=== PATIENT | female | born 1970 | race Caucasian/White ===

== ENCOUNTER 2018-08-12 17:38 | Inpatient (IN) | payer OTHER ==
[~2018-08-12] VITALS: Ht 167.6 cm; Wt 76.7 kg
[~2018-08-12 17:38] MED LIST: ALBU-118 IH; ARIP2TAB2 PO; ATA10 PO; FERR325E14 PO; PROP20TA29 PO
[2018-08-12 17:44] VITALS: BP 112/51
--- NOTE | 2018-08-12 17:49 | NUR ---
PT AMBULATES TO BED 4
--- NOTE | 2018-08-12 17:54 | NUR ---
PT C/O VAGINAL BLEEDING X 1 WEEK, PALE AND DIZZNESS AND NOT FEELING WELL. PATIENT FEELS NAUSEA NO VOMITTING. 06/11 ABDOMINAL CRAMPING HX--ANEMIA, FIBROID, COPD, ASTHMA MEDS--- PAROXETINE, ABILIFY
--- NOTE | 2018-08-12 18:09 | NUR ---
Patient being evaluated by physician at bedside.
[2018-08-12] MEDS ORDERED: ONDANSETRON 4 MG/2 ML VIAL IVP ONE (18:10)
[2018-08-12] MEDS ORDERED: NACL 0.9% 1,000 ML IV ONE ×2 (18:10→19:20)
[2018-08-12 18:53] LABS: BASOPHILS # (AUTO) 0.1 K/uL (0.00-0.22); BASOPHILS % (AUTO) 2.1 % (0.0-2.0); EOSINOPHILS # (AUTO) 0.1 K/uL (0-0.4); EOSINOPHILS % (AUTO) 1.4 % (0.0-4.0); LYMPHOCYTES % (AUTO) 14.9 % (20.5-51.1); MEAN CORPUSCULAR HEMOGLOBIN 17 pg (27-31); MEAN CORPUSCULAR HGB CONC 28 g/dL (33-37); MONOCYTES # (AUTO) 0.5 K/uL (0.8-1.0); NEUTROPHILS % (AUTO) 73.6 % (42.2-75.2); PLATELET COUNT (AUTO) 329 K/uL (140-450); RED BLOOD CELL COUNT(AUTO) 2.75 MIL/uL (4.20-5.40); RED CELL DISTRIBUTION WIDTH 19.7 % (11.6-13.7); WHITE BLOOD COUNT (AUTO) 6.8 K/uL (4.8-10.8)
[2018-08-12 19:03] LABS: ANION GAP 10.6 (8-16); CARBON DIOXIDE 27.3 mmol/L (21-32); CREATININE 0.9 mg/dL (0.6-1.3); POTASSIUM 3.9 mmol/L (3.5-5.1)
[2018-08-12 19:04] LABS: HEMOGLOBIN 4.7 g/dL (12.0-16.0)
[2018-08-12 19:09] LABS: TOTAL BILIRUBIN 0.3 mg/dL (0.0-1.0)
--- NOTE | 2018-08-12 19:10 | NUR ---
DR. ARGUETA EVALUATING PATIENT AFTER. Addendum: 08/12/[address] ARGUETA EVALUATING PATIENT.
[2018-08-12 19:18] LABS: PROTHROMBIN TIME 9.9 secs (10.8-13.4)
--- NOTE | 2018-08-12 19:21 | NUR ---
REPORT FROM MARY CARMEN WATSON
--- NOTE | 2018-08-12 19:30 | NUR ---
EKG PERFORMED AT BEDSIDE WITH RN PRESENT. PT COVERED IN GOWN AND BLANKET DURING PROCEDURE.
--- NOTE | 2018-08-12 19:44 | NUR ---
ULTRASOUND AT BEDSIDE.
[2018-08-12 19:47] LABS: CREATINE KINASE MB 0.5 ng/mL (0-3.6)
--- NOTE | 2018-08-12 20:36 | NUR ---
1UNIT PRBC STARTED.
--- NOTE | 2018-08-12 20:51 | NUR ---
15 MINS POST TRANSFUSION START. NO REACTION AT THIS TIME. VSS. TRANFUSION CONTINUING. WILL CONTINUE TO MONITOR.
--- NOTE | 2018-08-12 21:44 | NUR ---
Patient will be admitted to care of DR THOMAS. Admited to TELE. Will go to room 107-A. Belongings list completed. Report to SHIRLEY YOUSSEF.
--- NOTE | 2018-08-12 21:45 | NUR ---
PT ARRIVED TO FLOOR. RECEIVED BEDSIDE REPORT FROM ER NURSE ARIS. PT IS A&O X4. NO COMPLAINS OF SOB. RESPIRATIONS ARE EQUAL AND UNLABORED. PT HAS TWO IV LEFT HAND 22 G INFUSING NS BOLUS. R HAND 20 G RECEIVING BLOOD. VITAL SIGNS STABLE. DISCUSSED PLAN OF CARE. PT SKIN IS INTACT. PT STATES, " HAD SCHEDULED HYSTERECTOMY IN JULY BUT GOT CANCELED." BED ALARM ON AND ON LOWEST POSITION. CALL LIGHT WITHIN REACH.
[2018-08-12 21:48] VITALS: BP 109/39
--- NOTE | 2018-08-12 22:15 | NUR ---
PAGED DR THOMAS REGARDING PTS MEDS.
[2018-08-12] MEDS ORDERED: MORPHINE SULFATE 2 MG/ML SYR IVP PRN (22:30)
--- NOTE | 2018-08-12 23:45 | NUR ---
STARTED NEW BAG OF BLOOD. NO DISTRESS NOTED. PT DENIES ANY SOB OR PAIN. PT IN STABLE CONDITION. VITALS: 98.2, 107/43, 100% RA, RR 16 HEART RATE 74. CALL LIGHT WITHIN REACH WILL CONTINUE TO MONITOR
[2018-08-13] VITALS (7 sets, daily range): BP systolic 100–123; BP diastolic 43–60
--- NOTE | 2018-08-13 01:15 | NUR ---
VITAL SIGN STABLE PT SLEEPING COMFORTABLY IN BED. NO DISTRESS NOTED. CALL LIGHT WITHIN REACH.
--- NOTE | 2018-08-13 04:00 | NUR ---
VITAL SIGNS ARE STABLE. PT DENIES ANY PAIN. SAFETY MEASURES IN PLACE. CALL LIGHT WITHIN REACH.
[2018-08-13] MEDS ORDERED: INFLUENZA VIRUS VACCINE QUAD 0.5 ML SYR IMVAC PRN (04:25)
--- NOTE | 2018-08-13 05:30 | NUR ---
PT WITH VAGINAL BLEEDING. CHANGED ADAM PAD. PT DENIES ANY SOB OR PAIN. NO DISTRESS NOTED. SAFETY MEASURES IN PLACE. CALL LIGHT WITHIN REACH.
--- NOTE | 2018-08-13 07:26 | NUR ---
ENDORSED PT TO DAY SHIFT NURSE. PT IN STABLE CONDITION.
--- NOTE | 2018-08-13 07:30 | NUR ---
RECEIVED PT AAOX4. NO SOB NOTED. NO C/O PAIN AT THIS TIME. 2 IV'S TO RT AND LT HAND PATENT AND INTACT. CHEST, DIMINISHED AIR ENTRY TO THE BASES, OTHERWISE CLEAR. ABDOMEN SOFT, BOWEL SOUNDS PRESENT. PT PROVIDED WITH FEMININE PADS , INSTRUCTED PT TO CALL THE NURSE IF PROFUSE VAGINAL BLEEDING NOTED. NO PROFUSE VAGINAL BLEEDING NOTED AT THIS TIME. INSTRUCTED PT TO CALL FOR ASSISTANCE, CALL LIGHT WITHIN REACH, PT VERBALIZED UNDERSTANDING.
[2018-08-13 07:39] LABS: BASOPHILS # (AUTO) 0.1 K/uL (0.00-0.22); BASOPHILS % (AUTO) 1.7 % (0.0-2.0); EOSINOPHILS # (AUTO) 0.2 K/uL (0-0.4); EOSINOPHILS % (AUTO) 2.7 % (0.0-4.0); HEMATOCRIT 24.1 % (36-48); HEMOGLOBIN 7.2 g/dL (12.0-16.0); LYMPHOCYTES # (AUTO) 1.6 K/uL (2.5-16.5); MEAN CORPUSCULAR HEMOGLOBIN 21 pg (27-31); MEAN CORPUSCULAR HGB CONC 30 g/dL (33-37); MEAN CORPUSCULAR VOLUME 68.7 fL (80-94); MONOCYTES # (AUTO) 0.5 K/uL (0.8-1.0); MONOCYTES % (AUTO) 7.2 % (1.7-9.3); NEUTROPHILS # (AUTO) 4.1 K/uL (1.8-7.7); NEUTROPHILS % (AUTO) 63.4 % (42.2-75.2); PLATELET COUNT (AUTO) 323 K/uL (140-450); RED BLOOD CELL COUNT(AUTO) 3.51 MIL/uL (4.20-5.40); RED CELL DISTRIBUTION WIDTH 24.5 % (11.6-13.7); WHITE BLOOD COUNT (AUTO) 6.5 K/uL (4.8-10.8)
--- NOTE | 2018-08-13 08:49 | NUR ---
PATIENT HAS BEEN SCREENED AND CATEGORIZED MODERATE NUTRITION RISK. PATIENT WILL BE SEEN WITHIN 3-5 DAYS OF ADMISSION. 08/15/18 08/17/[address]
[2018-08-13] MEDS: ARIPiprazole 10 MG TAB PO SCH (09:33)
[2018-08-13] MEDS: hydrOXYzine HCL 10 MG TAB PO SCH (09:33)
--- NOTE | 2018-08-13 10:30 | NUR ---
PT SEEN BY DR. BRANCH WITH NEW ORDERS.
--- NOTE | 2018-08-13 11:00 | NUR ---
PAGED DR. BARILLAS REGARDING THE CONSULT, AWAITING FOR CALL BACK.
--- NOTE | 2018-08-13 12:00 | NUR ---
PT VOIDED FREELY TO THE BATHROOM , NOTED LARGE AMOUNTS OF CLOTS NOTED. PT ASYMPTOMATIC, VITAL SIGNS STABLE. WILL NOTIFY DR. BARILLAS.
--- NOTE | 2018-08-13 13:05 | NUR ---
DR. BARILLAS CALLED BACK AND STATED HE WILL COME TO SEE PT TOBI AROUND 6PM. PT NOTIFIED, VERBALIZED UNDERSTANDING.
[2018-08-13] MEDS ORDERED: FUROSEMIDE 20 MG/2 ML VIAL IVP SCH (14:00)
--- NOTE | 2018-08-13 14:20 | NUR ---
3RD UNIT PRBC STARTED ORDERED. WILL OBSERVE FOR ANY BLOOD TRANSFUSION REACTION.
--- NOTE | 2018-08-13 16:30 | NUR ---
PT RESTING. NO SOB NOTED. NO SIGNS OF PAIN.
--- NOTE | 2018-08-13 17:45 | NUR ---
3RD UNIT PRBC TRANSFUSION COMPLETED. NO BLOOD TRANSFUSION REACTIONS NOTED.
--- NOTE | 2018-08-13 18:00 | NUR ---
4TH UNIT PRBC STARTED ORDERED. WILL CONTINUE TO OBSERVE FOR ANY BLOOD TRANSFUSION REACTIONS.
--- NOTE | 2018-08-13 19:10 | NUR ---
PT AWAKE, NO SOB NOTED. NO C/O PAIN AT THIS TIME. 4TH UNIT PRBC ON GOING. DR. BARILLAS AT THE BEDSIDE. WILL ENDORSE TO NEXT SHIFT NURSE FOR CONTINUITY OF CARE.
--- NOTE | 2018-08-13 19:17 | NUR ---
RECEIVED REPORT FROM AM RN IN BED WITH PRBC TRANSFUSION ON GOING. NO NOTED ADVERSE REACTIONS. CALL LIGHT WITH IN REACH. PT. A/O X 4. ROM X 4 AND ABLE TO VERBALIZE NEEDS WELL. CARE PLANS FOR THE NIGHT DISCUSSED WITH HER. DX. OF VAGINAL BLEEDING. MD BARILLAS / CONSULT OB IN HERE AND TALKING WITH PT. TELEMETRY MONITORING. IVF SITE INTACT AND NO INFILTRATION NOTED.
--- NOTE | 2018-08-13 20:33 | NUR ---
MD BARILLAS /OB SERVICE AGENT ORDERED NPO MN FOR D AND C TOMORROW AT LUNCH TIME. CONSENT SIGNED. PT. ALERT AND ORIENTED. EXPLAINED TO PT. REASONS FOR NPO. "OK"
--- NOTE | 2018-08-13 21:35 | NUR ---
D AND C CONSENT SIGNED BY PATIENT. ORIENTED TO PROCEDURE BY MD BARILLAS/BUILD TECHNICIAN. NO COMPLAINTS DONE AT THIS TIME. A/O X 4. ROM X 4 . CLEAR SPEECH. ON TELEMETRY MONITORING.
[2018-08-14] VITALS (7 sets, daily range): BP systolic 103–128; BP diastolic 48–67
[2018-08-14 00:26] LABS: BASOPHILS # (AUTO) 0.1 K/uL (0.00-0.22); EOSINOPHILS # (AUTO) 0.2 K/uL (0-0.4); HEMOGLOBIN 9.2 g/dL (12.0-16.0); LYMPHOCYTES # (AUTO) 1.7 K/uL (2.5-16.5); MONOCYTES # (AUTO) 0.6 K/uL (0.8-1.0)
--- NOTE | 2018-08-14 00:30 | NUR ---
BLOOD SPECIMEN FOR CBC TAKEN. TOLERATED WELL. PT. SLEEPING GOOD AT THIS TIME. NO COMPLAINTS DONE.
[2018-08-14 00:58] LABS: BASOPHILS % (AUTO) 1.4 % (0.0-2.0); EOSINOPHILS % (AUTO) 3.1 % (0.0-4.0); HEMATOCRIT 29.6 % (36-48); MEAN CORPUSCULAR HEMOGLOBIN 23 pg (27-31); MEAN CORPUSCULAR HGB CONC 31 g/dL (33-37); MEAN CORPUSCULAR VOLUME 73.2 fL (80-94); MONOCYTES % (AUTO) 8.5 % (1.7-9.3); PLATELET COUNT (AUTO) 288 K/uL (140-450); RED BLOOD CELL COUNT(AUTO) 4.05 MIL/uL (4.20-5.40); WHITE BLOOD COUNT (AUTO) 7.6 K/uL (4.8-10.8)
[2018-08-14 01:09] LABS: RED CELL DISTRIBUTION WIDTH 25.9 % (11.6-13.7)
--- NOTE | 2018-08-14 02:30 | NUR ---
ASSISTED TO BEDSIDE COMMODE TO URINATE. NO SOB. CALL LIGHT WITH IN REACH. USES CALL LIGHT WELL.
--- NOTE | 2018-08-14 06:17 | NUR ---
SLEEPING WELL. NO COMPLAINTS DONE. TELEMETRY MONITORING. CALL LIGHT WITH IN REACH.
[2018-08-14 07:20] LABS: BASOPHILS # (AUTO) 0.1 K/uL (0.00-0.22); EOSINOPHILS # (AUTO) 0.2 K/uL (0-0.4); EOSINOPHILS % (AUTO) 2.8 % (0.0-4.0); HEMATOCRIT 29.4 % (36-48); HEMOGLOBIN 9.2 g/dL (12.0-16.0); LYMPHOCYTES # (AUTO) 1.2 K/uL (2.5-16.5); LYMPHOCYTES % (AUTO) 16.6 % (20.5-51.1); MEAN CORPUSCULAR HEMOGLOBIN 23 pg (27-31); MEAN CORPUSCULAR HGB CONC 31 g/dL (33-37); MEAN CORPUSCULAR VOLUME 72.5 fL (80-94); MONOCYTES # (AUTO) 0.6 K/uL (0.8-1.0); MONOCYTES % (AUTO) 8.3 % (1.7-9.3); NEUTROPHILS % (AUTO) 70.3 % (42.2-75.2); PLATELET COUNT (AUTO) 290 K/uL (140-450); RED BLOOD CELL COUNT(AUTO) 4.05 MIL/uL (4.20-5.40); RED CELL DISTRIBUTION WIDTH 25.4 % (11.6-13.7); WHITE BLOOD COUNT (AUTO) 7.1 K/uL (4.8-10.8)
--- NOTE | 2018-08-14 07:21 | NUR ---
ENDORSED TO THE NEXT RN FOR CONTINUITY OF CARE. PT. A/O X 4. NPO SINCE MIDNIGHT.
--- NOTE | 2018-08-14 07:30 | NUR ---
RECEIVED PT AAOX4. NO SOB NOTED. NO C/O PAIN AT THIS TIME. 2 IV'S TO RT AND LT HAND PATENT AND INTACT. CHEST, DIMINISHED AIR ENTRY TO THE BASES, OTHERWISE CLEAR. ABDOMEN SOFT, BOWEL SOUNDS PRESENT. PT PROVIDED WITH BEDSIDE COMMODE, FEMININE PADS AND INSTRUCTED TO CALL THE NURSE IF PROFUSE VAGINAL BLEEDING NOTED. NO PROFUSE VAGINAL BLEEDING NOTED AT THIS TIME. NPO FOR PLANNED PROCEDURE AT 1300. CONSENT SIGNED FOR D&C. INSTRUCTED PT TO CALL FOR ASSISTANCE, CALL LIGHT WITHIN REACH, PT VERBALIZED UNDERSTANDING.
[2018-08-14] MEDS: hydrOXYzine HCL 10 MG TAB PO SCH (09:00)
[2018-08-14] MEDS: ARIPiprazole 10 MG TAB PO SCH (09:00)
--- NOTE | 2018-08-14 09:30 | NUR ---
NPO MAINTAINED FOR PLANNED PROCEDURE.
[2018-08-14 11:04] LABS: ANION GAP 9.9 (8-16); POTASSIUM 3.9 mmol/L (3.5-5.1)
[2018-08-14 11:09] LABS: ALBUMIN 2.8 g/dL (3.4-5.0); TOTAL BILIRUBIN 0.8 mg/dL (0.0-1.0)
--- NOTE | 2018-08-14 12:10 | NUR ---
PT WHEELED TO SURGERY IN STABLE CONDITION BY DEBRA.
[2018-08-14] MEDS ORDERED: PROPOFOL 200 MG/20 ML VIAL IV ONE (12:58)
[2018-08-14] MEDS ORDERED: LIDOCAINE 2% 100 MG/5 ML SYR IVP ONE (12:58)
[2018-08-14] MEDS ORDERED: MIDAZOLAM 2 MG/2 ML VIAL ONE (12:58)
[2018-08-14] MEDS ORDERED: SEVOFLURANE 250 ML BTL INH ONE (12:58)
[2018-08-14] MEDS ORDERED: HYDROmorphone 1 MG/ML AMP IVP PRN (13:35)
[2018-08-14] MEDS ORDERED: ONDANSETRON 4 MG/2 ML VIAL IVP PRN (13:35)
[2018-08-14] MEDS ORDERED: OXYTOCIN 10 UNITS/ML VIAL ONE (13:52)
[2018-08-14] MEDS ORDERED: IBUPROFEN 600 MG TAB PO PRN (14:10)
[2018-08-14] MEDS ORDERED: KETOROLAC 30 MG/ML VIAL IVP PRN (14:10)
[2018-08-14] MEDS: HYDROmorphone PFS 2 MG/ML SYR ONE ×2 (14:17→14:29)
--- NOTE | 2018-08-14 14:32 | NUR ---
CM NOTE PER [facility] MIRNA ZIMMER, PATIENT'S PCP IS DR. MADDIE PANDYA, PH# [phone], ADDRESS: [address] [place] [address]. PER CR[facility]STAL OF DR. PANDYA'S CLINIC, PATIENT IS SCHEDULED FOR OUTPATIENT FF UP ON AUGUST 20 2018, MONDAY, 9:45 AM. FLAVIO WATSON AWARE.
--- NOTE | 2018-08-14 15:00 | NUR ---
PT BACK FROM PACU IN STABLE CONDITION S/P D&C. PT AWAKE, DROWSY. NO SOB NOTED. NO C/O PAIN. WITH SMALL AMOUNST OF VAGINAL BLEEDING NOTED ON ADAM PADS. WILL CONTINUE TO MONITOR.
[2018-08-14] MEDS ORDERED: MEDR10TA PO (15:18)
[2018-08-14] MEDS ORDERED: IBUP-1842 PO (15:19)
--- NOTE | 2018-08-14 16:30 | NUR ---
PT TOLERATING ICE CHIPS, NO N&V NOTED.
--- NOTE | 2018-08-14 17:10 | NUR ---
PT VOIDED FREELY IN BEDSIDE COMMODE. SMALL AMOUNTS OF VAGINAL BLEEDING, NO BLOOD CLOTS NOTED.
--- NOTE | 2018-08-14 18:10 | NUR ---
pt consumed 50% of full liquid diet. diet tolerated well. no n&v noted. pt stated she will be picked up by her roommate around 8 pm tonight.
--- NOTE | 2018-08-14 19:15 | NUR ---
RECEIVED REPORT FROM FLAVIO RN DAYSHIFT NURSE AT BEDSIDE FOR CONTINUITY OF CARE, PT IN STABLE CONDITION.
--- NOTE | 2018-08-14 19:15 | NUR ---
PT RESTING. NO SOB NOTED. NO COMPLAINTS MADE. ENDORSED TO NEXT SHIFT NURSE TO CONTINUE WITH THE DISCHARGE PROCESS.
--- NOTE | 2018-08-14 19:30 | NUR ---
VISITING PT AT BEDSIDE.
--- NOTE | 2018-08-14 20:00 | NUR ---
PT IN BED RESTING AWAKE AND ALERT TO NAME. PT HAD MINIMAL BLOODY VAGINAL DISCHARGE, NO C/O OF PAIN OR DISCOMFORT. DISCHARGE INSTRUCTIONS REVIEWED INCLUDING DIET AND BASIC ADL'S WELL REVIEW OF TAKE HOME MEDS AND F/U APPOINTMENT. PRESCRIPTIONS INCLUDED AND REVIEWED. PT VERBALIZED UNDERSTANDING AND DISCHARGE PAPERS SIGNED BY PT AND PRIMARY RN. IV SITES REMOVED AND NAME BANDS CUT OFF. PT AWAITING RIDE FROM HOSPITAL.
--- NOTE | 2018-08-14 20:15 | NUR ---
PT IN BED V/S FOLLOWS T 97.7 P 63 R 18 B/P 109/48 02 97% ON R/A. NO S/S OF PAIN OR DISTRESS NOTED, NO C/O VOICED MINIMAL VAGINAL BLEEDING NOTED.
--- NOTE | 2018-08-14 22:16 | NUR ---
PT DRESSED WITH BELONGINGS IN HAND, PT RIDE AT DOOR STEP. PRIMARY NURSES TRIP ESCORTING PT OUT BY W/C.
== END 2018-08-14 22:20 | disposition home or self-care (01) | DRG 517 ==
LOC: MED 17:38 → MTU 20:57
PROVIDERS: ADMIT Hospitalist; ATTEND Hospitalist
PROC: 30233N1 Transfusion of Nonautologous Red Blood Cells into Peripheral Vein, Percutaneous Approach (ICD-10-PCS; principal; 2018-08-12)
PROC: 0UDB7ZX Extraction of Endometrium, Via Natural or Artificial Opening, Diagnostic (ICD-10-PCS; 2018-08-13)
PROC: 3E02340 Introduction of Influenza Vaccine into Muscle, Percutaneous Approach (ICD-10-PCS; 2018-08-14)
DX: N93.9 Abnormal uterine and vaginal bleeding, unspecified (principal); E44.0 Moderate protein-calorie malnutrition; D62 Acute posthemorrhagic anemia; I95.9 Hypotension, unspecified; J44.9 Chronic obstructive pulmonary disease, unspecified; I10 Essential (primary) hypertension; Z23 Encounter for immunization; Z79.899 Other long term (current) drug therapy; Z90.89 Acquired absence of other organs; Z87.891 Personal history of nicotine dependence; Z68.27 Body mass index [BMI] 27.0-27.9, adult; D25.9 Leiomyoma of uterus, unspecified
CPT/HCPCS: 36415; 71046; 76856; 80053; 82550; 82553; 83540; 84484; 84702; 85025; 85610; 85730; 86886; 86900; 86901; 86920; 87081; 88305; 90658; 93005; 96361; 96374; 99285; J1050; J1170; J1940; J2001; J2250; J2405; J2590; J2704; J7030; J7120; P9016; Q0092